=== PATIENT | male | born 1985 | race Caucasian/White ===

== ENCOUNTER 2017-10-25 20:41 | Emergency (ER) | payer SELFPAY ==
--- NOTE | 2017-10-25 21:21 | RAD ---
INDICATION: Right elbow pain COMPARISON: None TECHNIQUE: AP, lateral, and oblique views were obtained. FINDINGS: There is no acute fracture or dislocation. There is displacement of anterior posterior fat pads consistent with joint effusion There is soft tissue swelling. IMPRESSION: JOINT EFFUSION
[2017-10-25] MEDS ORDERED: traMADol TAB* 50 MG PO ONE (21:38)
[2017-10-25] MEDS ORDERED: Ibuprofen TAB* 800 MG PO ONE (21:38)
[2017-10-25] MEDS ORDERED: Morphine INJ* 10 MG/ML 1 ML CARPUJECT IV ONE (21:51)
[2017-10-25] MEDS ORDERED: Metoclopramide IV* 5 MG/ML 2 ML VIAL IV SLOW PU ONE (21:52)
[2017-10-25] MEDS ORDERED: Ibuprofen TAB* 400 MG PO ONE (22:18)
[2017-10-25 22:29] LABS: Hematocrit 43 % (42-52); Hemoglobin 14.2 g/dl (14.0-18.0); Mean Corpuscular HGB Conc 33 g/dl (31-36); Mean Corpuscular Hemoglobin 31 pg (27-31); Mean Corpuscular Volume 92 fL (80-94); Red Blood Count 4.63 10^6/ul (4.0-5.4)
[2017-10-25 22:30] LABS: ABS Basophils 0 10^3/ul (0-0.2); ABS Eosinophils 0.3 10^3/ul (0-0.6); ABS Lymphocytes 1.9 10^3/ul (1.0-4.8); ABS Monocytes 0.7 10^3/ul (0-0.8); ABS Neutrophils 5.1 10^3/ul (1.5-7.7); ABS Nucleated RBC 0 10^3/ul; Eosinophil % 3.3 % (0-6); Lymphocyte % 23.5 % (25-47); Mean Platelet Volume 10 um3 (7.4-10.4); Nucleated Red Blood Cells % 0.1; Platelet Count 179 10^3/ul (150-450); Red Cell Distribution Width 13 % (10.5-15)
[2017-10-25 22:44] LABS: EGFR Non-African American 83.9 (>60)
--- NOTE | 2017-10-25 23:19 | ED ---
Bry Sweeney Tecjoon, scribed for Ivonne Marlow MD on 10/25/17 at 2141 . Upper Extremity Pain - HPI Summary HPI Summary: This patient is a 32 year old male presenting to [facility] accompanied by father with a chief complaint of right elbow pain since yesterday morning. Patient states that he cannot fully extend his elbow. Patient states no history of trauma to the extremity. The pain is rated 1/10 in severity. Symptoms aggravated by nothing. Symptoms alleviated by nothing. Patient denies fever - History of Current Complaint Chief Complaint: EDExtremityUpper Stated Complaint: RT ELBOW INJURY Time Seen by Provider: 10/25/17 21:27 Hx Obtained From: Patient Onset/Duration: Started Days Ago - 2, Still Present Timing: Constant Severity Initially: Mild Severity Currently: Mild Pain Location: Elbow - right Aggravating Factor(s): Nothing Alleviating Factor(s): Nothing Associated Signs & Symptoms: Positive: Negative - fever - Allergies/Home Medications Allergies/Adverse Reactions: Allergies Allergy/AdvReac Type Severity Reaction Status Date / Time codeine Allergy Unknown Verified 10/25/17 20:44 Reaction Details PMH/Surg Hx/FS Hx/Imm Hx Previously Healthy: No Endocrine/Hematology History: Denies: Hx Diabetes, Hx Thyroid Disease Cardiovascular History: Denies: Hx Hypertension, Hx Pacemaker/ICD, Other Cardiovascular Problems/ Disorders Respiratory History: Denies: Hx Asthma, Hx Chronic Obstructive Pulmonary Disease (COPD), Other Respiratory Problems/Disorders GI History: Denies: Hx Ulcer, Other GI Disorders History: Denies: Other Problems/Disorders Musculoskeletal History: Denies: Other Musculoskeletal History Sensory History: Denies: Hx Contacts or Glasses, Hx Hearing Aid Opthamlomology History: Denies: Hx Contacts or Glasses Neurological History: Reports: Hx Migraine Denies: Other Neuro Impairments/Disorders Psychiatric History: Denies: Hx Panic Disorder - Surgical History Surgery Procedure, Year, and Place: ankle surgery 2013 Hx Anesthesia Reactions: No Infectious Disease History: No Infectious Disease History: Denies: Hx Hepatitis, Hx Human Immunodeficiency Virus (HIV), Traveled Outside the US in Last 30 Days - Family History Known Family History: Negative: Hypertension - Social History Occupation: Employed Full-time Lives: With Family Alcohol Use: None Hx Substance Use: No Substance Use Type: Reports: None Hx Tobacco Use: No Smoking Status (MU): Never Smoked Tobacco Review of Systems Negative: Fever Positive: Other - right elbow pain All Other Systems Reviewed And Are Negative: Yes Physical Exam - Summary Physical Exam Summary: VITAL SIGNS: Reviewed. GENERAL: Patient is a well-developed and nourished male who is lying comfortable in the stretcher. Patient is not in any acute respiratory distress. HEAD AND FACE: No signs of trauma. No ecchymosis, hematomas or skull depressions. No sinus tenderness. EYES: PERRLA, EOMI x 2, No injected conjunctiva, no nystagmus. EARS: Hearing grossly intact. Ear canals and tympanic membranes are within normal limits. MOUTH: Oropharynx within normal limits. NECK: Supple, trachea is midline, no adenopathy, no JVD, no carotid bruit, no c- spine tenderness, neck with full ROM. CHEST: Symmetric, no tenderness at palpation LUNGS: Clear to auscultation bilaterally. No wheezing or crackles. CVS: Regular rate and rhythm, S1 and S2 present, no murmurs or gallops appreciated. ABDOMEN: Soft, non-tender. No signs of distention. No rebound no guarding, and no masses palpated. Bowel sounds are normal. EXTREMITIES: FROM in all major joints, no edema, no cyanosis or clubbing. NEURO: Alert and oriented x 3. No acute neurological deficits. Speech is normal and follows commands. SKIN: Dry and warm Triage Information Reviewed: Yes Vital Signs On Initial Exam: Initial Vitals Temp Pulse Resp BP Pulse Ox 99.4 F 61 16 148/82 98 10/25/17 20:44 10/25/17 20:44 10/25/17 20:44 10/25/17 20:44 10/25/17 20:44 Vital Signs Reviewed: Yes Diagnostics - Vital Signs Vital Signs Temp Pulse Resp BP Pulse Ox 10/25/17 20:44 99.4 F 61 16 148/82 98 - Laboratory Lab Results: Lab Results 10/25/17 10/25/17 Range/Units 22:17 22:17 WBC 8.0 (3.5-10.8) 10^3/ul RBC 4.63 (4.0-5.4) 10^6/ul Hgb 14.2 (14.0-18.0) g/dl Hct 43 (42-52) % MCV 92 (80-94) fL MCH 31 (27-31) pg MCHC 33 (31-36) g/dl RDW 13 (10.5-15) % Plt Count 179 (150-450) 10^3/ul MPV 10 (7.4-10.4) um3 Neut % (Auto) 64.1 (38-83) % Lymph % (Auto) 23.5 L (25-47) % Cameron % (Auto) 8.6 (1-9) % Eos % (Auto) 3.3 (0-6) % Baso % (Auto) 0.5 (0-2) % Absolute Neuts (auto) 5.1 (1.5-7.7) 10^3/ul Absolute Lymphs (auto) 1.9 (1.0-4.8) 10^3/ul Absolute Monos (auto) 0.7 (0-0.8) 10^3/ul Absolute Eos (auto) 0.3 (0-0.6) 10^3/ul Absolute Basos (auto) 0 (0-0.2) 10^3/ul Absolute Nucleated RBC 0 10^3/ul Nucleated RBC % 0.1 ESR Pending Sodium 139 (133-145) mmol/L Potassium 4.0 (3.5-5.0) mmol/L Chloride 106 (101-111) mmol/L Carbon Dioxide 27 (22-32) mmol/L Anion Gap 6 (2-11) mmol/L BUN 27 H (6-24) mg/dL Creatinine 1.04 (0.67-1.17) mg/dL Est GFR ( Amer) 107.8 (>60) Est GFR (Non-Af Amer) 83.9 (>60) BUN/Creatinine Ratio 26.0 H (8-20) Glucose 118 H (70-100) mg/dL Calcium 9.4 (8.6-10.3) mg/dL Total Bilirubin 0.40 (0.2-1.0) mg/dL AST 15 (13-39) U/L ALT 16 (7-52) U/L Alkaline Phosphatase 39 (34-104) U/L C-Reactive Protein < 1.00 (< 5.00) mg/L Total Protein 6.7 (6.4-8.9) g/dL Albumin 4.4 (3.2-5.2) g/dL Globulin 2.3 (2-4) g/dL Albumin/Globulin Ratio 1.9 (1-3) Result Diagrams: 10/25/17 22:17 10/25/17 22:17 Lab Statement: Any lab studies that have been ordered have been reviewed, and results considered in the medical decision making process. Course/Dx - Course Course Of Treatment: This patient is a 32 year old male presenting to [facility] accompanied by father with a chief complaint of right elbow pain since yesterday morning. Patient states no history of trauma to the extremity. XR Elbow reveals, per radiologist, IMPRESSION: JOINT EFFUSION. ED physician has reviewed this radiology report. Bloodwork Obtained. Urinalysis Obtained. In the ED course the patient was given Ibuprofen, Ultram, Morphine, Reglan. We discussed patient care with Dr. Nix (Ortho) at 2148 and they recommended collecting bloodwork and reconvening. We discussed patient care with Dr. Michele (Ortho) at 2240 after collecting bloodwork and he believes that the patient does not have septic arthritis. The patient will be discharged with a diagnosis of reactive arthritis. The patient is advised to follow up with Dr. Caruso (Orthopedist) in 3 days. The patient is agreeable with this plan. - Diagnoses Provider Diagnoses: Reactive arthritis, rule out septic arthritis - Physician Notifications Discussed Care of Patient With: Luis Abreu Time Discussed With Above Provider: 21:48 - We discussed patient care with Dr. Nix (Ortho) and they recommended collecting bloodwork and reconvening. Instructed by Provider To: Other - We discussed patient care with Dr. Michele ( Ortho) at 2240 after collecting bloodwork and he believes that the patient does not have septic arthritis. Discharge - Discharge Plan Condition: Stable Disposition: HOME Prescriptions: Ibuprofen TAB* [Motrin TAB* 800 MG] 800 mg PO Q6H #30 tab Patient Education Materials: Arthritis (ED) Referrals: Montana Soto MD [Primary Care Provider] - 4 Days Clifford Caruso MD [Medical Doctor] - 3 Days Additional Instructions: Please make sure to call Dr. Caruso's office Saturday morning to make an appointment. Call office at 8 am. Return to the ED for new or worsening symptoms. The documentation as recorded by the Bry neri Tecjoon accurately reflects the service I personally performed and the decisions made by Ele caballero Abdul, MD.
[2017-10-25 23:21] VITALS: BP 124/72
== END 2017-10-25 23:21 | disposition home or self-care (01) ==
LOC: ED 20:41
DX: M02.8 Other reactive arthropathies (principal); M02.9 Reactive arthropathy, unspecified; Z88.5 Allergy status to narcotic agent
CPT/HCPCS: 36415; 80053; 85025; 85652; 86140; 86618; 96374; 96375; 99282; A9270-GY

== ENCOUNTER 2018-01-03 10:53 | Inpatient (IN) | payer MEDICAID ==
[2018-01-03 11:48] LABS: Urine Appearance Clear; Urine Blood Negative (Negative); Urine Color Yellow; Urine Ketones Negative (Negative); Urine Protein Negative (Negative); Urine Red Blood Cell Trace(0-2/hpf) (Absent); Urine Specific Gravity 1.021 (1.010-1.030); Urine Urobilinogen Negative (Negative); Urine White Blood Cell Trace(0-5/hpf) (Absent)
[2018-01-03 12:51] LABS: ABS Basophils 0 10^3/ul (0-0.2); ABS Eosinophils 0.1 10^3/ul (0-0.6); ABS Lymphocytes 1.1 10^3/ul (1.0-4.8); ABS Monocytes 0.5 10^3/ul (0-0.8); ABS Neutrophils 4.1 10^3/ul (1.5-7.7); ABS Nucleated RBC 0 10^3/ul; Eosinophil % 2.2 % (0-6); Hematocrit 44 % (42-52); Lymphocyte % 18.7 % (25-47); Mean Corpuscular HGB Conc 34 g/dl (31-36); Mean Corpuscular Hemoglobin 31 pg (27-31); Mean Corpuscular Volume 92 fL (80-94); Nucleated Red Blood Cells % 0; Platelet Count 187 10^3/ul (150-450); Red Blood Count 4.82 10^6/ul (4.0-5.4); Red Cell Distribution Width 13 % (10.5-15); White Blood Count 5.5 10^3/ul (3.5-10.8)
[2018-01-03 12:56] LABS: EGFR Non-African American 93.1 (>60)
[2018-01-03] MEDS ORDERED: Acetaminophen TAB* 325 MG PO PRN (15:06)
[2018-01-03] MEDS ORDERED: Al Hydrox/Mg Hydrox/Simet LIQ* 30 ML UDC PO PRN (15:06)
[2018-01-03] MEDS ORDERED: LORazepam TAB(*) 1 MG PO PRN (15:08)
[2018-01-03] MEDS ORDERED: Haloperidol TAB* 5 MG PO PRN (15:08)
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
--- NOTE | 2018-01-04 21:05 | HP ---
HISTORY AND PHYSICAL: DATE OF ADMISSION: IDENTIFYING DATA: Lang is a 32-year-old white male, with no prior history of psychiatric hospitaliza tion or treatment, was brought into the emergency room by police after his family and friends called 911 due to their concern about his safety as well as safety of others that he is paranoid about. Acc ording to the family and Lang corroborates with that as well that for the last several years, he has been having thoughts that some of his intellectual properties were being stolen by others and they we re making fortune while he was not getting anything out of it. He believes something called foot scri bbling, which can earn him millions even billions of dollars. This intellectual idea was stolen by a couple of agencies and they will be making billions of dollars and he is very upset about it and had thoughts of hurting them and eventually yesterday, while he was driving and talking to one of his fr iends, he even told his friend that he was going to end his life because of this enormous loss that merry cosme has suffered by losing his intellectual property to other people. His brother and mother also expr essed their concerns about his unusual thought content especially the paranoia that he has that they wanted him to get some help. During today's evaluation, he verbalized those delusions and paranoia, but denies any hallucinations. He also denied any thoughts of hurting others, although acknowledges that there was a time that he thought about ending his life because of the enormous loss he suffered. PAST PSYCHIATRIC HISTORY: Unremarkable as this is his first exposure to mental health. SUBSTANCE ABUSE HISTORY: Although he experimented with cocaine and has a history of drinking in the past, he continues to smoke marijuana on daily basis. He has been smoking marijuana for years now. His last drink was months ago and he has not used any cocaine for about a couple of years now. He de nies use of any other psychoactive drugs. PAST MEDICAL HISTORY: Unremarkable. He is a healthy-appearing young male. FAMILY PSYCHIATRIC HISTORY: Lang reports that his father may have mental health problems and he thin ks his father suffers from conversion disorder. In his opinion, his paternal grandmother also has so me mental health problems. There is no history of completed suicide or suicide attempts. PERSONAL AND SOCIAL HISTORY: Lang lives in [place]. 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 He reports that he has 4 years of college education in business administration; however, did not pursue any career in business administration. He rather wishes to become a physical health bilingual trainer. He do es yoga and other physical activities and wants to be a bilingual trainer. He is currently not involved in any romantic relationship. He reports that his libido has been very poor and cannot maintain a relation ship because of that reason. Denies any legal problems. PHYSICAL EXAMINATION GENERAL APPEARANCE: Healthy-appearing white male in no apparent physical distress. VITAL SIGNS: Shows a blood pressure of 136/91, respirations 14, pulse 60, temperature 98.1, O2 sat 9 7% on room air. HEENT: Head: Atraumatic, normocephalic. Face: Normal. Eyes: EOMI, PERRLA. Ear canals: Clean wi th intact tympanic membranes bilaterally. NECK: Supple. No enlarged lymph nodes or thyroid gland. Midline trachea. CHEST: Breath sounds normal bilaterally. CARDIOVASCULAR: Heart rate regular with regular rhythm. No murmurs or gallops. S1 and S2 only. ABDOMEN: Flat, but soft without any organomegaly or rebound tenderness. Bowel sounds positive in al l quadrants. MUSCULOSKELETAL: Normal strength. ROM intact. NEUROLOGIC: Cranial nerves II through XII grossly intact. He is alert and oriented to time, place, and person. LABORATORY DATA: Show a WBC count of 5.5, hemoglobin 15, hematocrit 44, platelets 187. CMP shows a sodium level of 137, potassium 3.9, chloride 103, carbon dioxide 24, BUN 15, creatinine 0.95. Rest unremarkable. Tox screen unremarkable. MENTAL STATUS EXAMINATION: Lang is average height, thin-framed, otherwise physically healthy Caucasi an male with short cut hair, clean shaven with fair personal hygiene. He makes good eye contact. Sp eech is normal in all spheres. Describes his mood as good. Observed affect euthymic. Thought proces s is logical and goal-directed; however, thought content has delusion of grandeur and some paranoid d elusions as well. There is no evidence or report of perceptual disturbances. His intelligence appea rs to be average as evidenced by his vocabulary, fund of knowledge, and educational background. Sebastian ry functions are intact in all spheres. Insight and judgment impaired. SUMMARY: This 32-year-old male with no prior history of treatment for psychiatric illness has been experiencing delusion of grandeur and some paranoid delusion resulting in him thinking about either hurting those people, who stole his intellectual property to make millions of dollars or he w as going to end his life because of the tremendous loss he suffered. At this time, he poses a seriou s risk of harm to self and others and needs inpatient hospitalization. DIAGNOSTIC IMPRESSION: MENTAL HEALTH DIAGNOSES: Unspecified psychosis, rule out substance-induced psychosis; cannabis use d isorder; rule out bipolar disorder with psychotic symptoms. PHYSICAL HEALTH DIAGNOSIS: None. TREATMENT RECOMMENDATIONS: Lang will remain hospitalized on behavioral science unit for his and othe rs' safety as well as stabilization of acute psychosis. Supportive milieu, individual, and group ther apy will be initiated. His code status will remain full. For now, I will start him on low doses of risperidone. Risks, benefits, and alternatives to risperidone were explained to him. He verbalized h is understanding and wants to give it a try. His regular use of marijuana was discussed in detail an santiago the possibility of his psychosis related to his marijuana use was also explained to him, although merry cosme has hard time understanding it. He was open to any kind of treatment recommendation. In my opinsarath cardenas, involving his family in his future treatment plan for substance abuse will be very helpful and don cardenas referring him for substance use treatment will not be a bad idea. [id number]/[facility] #: [id number]
--- NOTE | 2018-01-06 13:45 | PN ---
[facility]: Group Therapy Note - Service Type Service Type: 74101 Group Psychotherapy - Cognitive Behavioral Group Therapy ( CBT):Patient was attentive and participatory in CBT programming this morning, and remained in good behavioral control. Patient expressed positive insights regarding relevant treatment interventions and goals.
--- NOTE | 2018-01-06 14:35 | PN ---
Subjective - Subjective Service Type: 74095 Hosp care 25 min moderate complexity Subjective: Patient admitted over the weekend and assigned to policy writer typist this morning. Patient reports "uncertainty about everything." He is vague and guarded. He goes on to describe an idea that he had in 2012 about "turning foot work into art work. " He states that he told various people about this idea and has recently seen it explode on social media. He speaks with overuse of phrases, such as "that which defines me" and "conducive to." Patient identifies he is "obsessive in nature" and that he has stopped alcohol and other impulses. He states he has a history "doing everything high" and has decreased marijuana use in the last year. He reports his last use was approx one week ago. He states he saw Gregorio Hager for counseling most recently in July and has otherwise seen him "a handful of times in the last few years." He states that GP has encouraged him to go to [facility] clinic. Objective - Appearance Appearance: Healthy Appearing Dysmorphic Features: No Hygiene: Normal Grooming: Well Kept - Behavior Psychomotor Activities: Normal Exhibits Abnormal Movement: No - Attitude and Relatedness Attitude and Relatedness: Psychotically Related Eye Contact: Good - Speech Quality: Unpressured Latencies: Normal Quantity: Copious - Mood Patient's Decription of Mood: "Good" - Affect Observed Affect: Expansive Affect Consistent with: Euphoria - Thought Process Patient's Thought Process: Loose Associations, Over Inclusive Thought Content: Yes Paranoid Ideation, No Passive Wish, No Suicidal Planning, No Homicidal Ideation - Sensorium Experiencing Hallucinations: No, Sensorium is Clear Type of Hallucinations: Visual: No, Auditory: No, Command: No - Level of Consciousness Level of Consciousness: Alert Orientation: Yes Intact, Yes Orientated to Time, Yes Orientated to Place, Yes Orientated to Person - Impulse Control Impulse Control: Tenuous - Insight and Judgement Insight and Judgement: Poor - Group Participation Particating in Group Activities: Yes - Medication Management Medication Management Adherence: Yes Assessment - Assessment Merits Inpatient Hospitalization: For Immediate Safety, For Stabilization Inpatient DSM-V Dx: F23 Clinical Impression: 32yo white male who presented to ED with thoughts of harm to self and others in relation to grandiose and paranoid delusions. He reports decreasing marijuana intake compared to heavy daily use. He continues to exhibit psychotic thinking and merits hospitalization for immediate safety and stabilization. Plan - Plan Treatment Plan: Name: MYLES CREWS Birthdate: 1985 [id number] continue acute intensive psychiatric treatment. increase risperidone to 1mg. obtain MMPI for diagnostic clarification. decrease observation to q30min and allow staff pass. discharge planning to include family members and referrals to outpatient services. Continued Medication Management: Start Medication Medications: Current Medications Acetaminophen (Tylenol Tab*) 650 mg PO Q4H PRN PRN Reason: for pain; or Temp >101 F Al Hydrox/Mg Hydrox/Simethicone (Maalox Plus*) 30 ml PO Q4H PRN PRN Reason: INDIGESTION Haloperidol (Haldol Tab*) 5 mg PO Q6H PRN PRN Reason: AGITATION Risperidone (Risperdal) 0.5 mg PO BEDTIME RAMSES Last Admin: 01/05/18 20:37 Dose: 0.5 mg - Discharge Plan Discharge Plan: Outpatient Follow Up Outpatient Program: [facility]
[2018-01-06] MEDS: risperiDONE TAB* 1 MG PO SCH (20:30)
--- NOTE | 2018-01-07 11:34 | PN ---
[facility]: Group Therapy Note - Service Type Service Type: 26695 Group Psychotherapy - Cognitive Behavioral Group Therapy ( CBT):Patient was attentive and participatory in CBT programming this morning, and remained in good behavioral control. Patient expressed positive insights regarding relevant treatment interventions and goals.
--- NOTE | 2018-01-07 14:50 | PN ---
Subjective - Subjective Service Type: 19571 Hosp care 25 min moderate complexity Subjective: Patient reports "slight angst" and some remorse for interactions that have been received as "too aggressive." He states that he often feels "pressure behind my left high that is related to emotional intensity." His thought content is tangential but also circumstantial in regards to his chief complaint of "stolen intellectual property." Objective - Appearance Appearance: Well Developed/Nourished, Healthy Appearing Dysmorphic Features: No Hygiene: Normal Grooming: Well Kept - Behavior Psychomotor Activities: Normal Exhibits Abnormal Movement: No - Attitude and Relatedness Attitude and Relatedness: Psychotically Related Eye Contact: Good - Speech Quality: Unpressured Latencies: Normal Quantity: Appropriate - Mood Patient's Decription of Mood: "slight angst" - Affect Observed Affect: Good Affect Consistent with: Euthymia - Thought Process Patient's Thought Process: Circumstantial Thought Content: Yes Paranoid Ideation, No Passive Wish, No Suicidal Planning, No Homicidal Ideation - Sensorium Experiencing Hallucinations: No, Sensorium is Clear Type of Hallucinations: Visual: No, Auditory: No, Command: No - Level of Consciousness Level of Consciousness: Alert - Impulse Control Impulse Control: Tenuous - Insight and Judgement Insight and Judgement: Poor - Group Participation Particating in Group Activities: Yes - Medication Management Medication Management Adherence: Yes Assessment - Assessment Merits Inpatient Hospitalization: For Immediate Safety, For Stabilization, Consolidate Improvements, For Discharge Planning Inpatient DSM-V Dx: F23 Clinical Impression: 32yo white male who presented to ED with thoughts of harm to self and others in relation to grandiose and paranoid delusions. He reports decreasing marijuana intake compared to heavy daily use. He continues to exhibit psychotic thinking and merits hospitalization for immediate safety and stabilization. Plan - Plan Treatment Plan: Name: MYLES CREWS Birthdate: 1985 [id number] continue acute intensive psychiatric treatment. continue risperidone at current dose. awaiting MMPI for diagnostic clarification. decrease observation to q30min and allow staff pass. discharge planning to include family members and referrals to outpatient services. Continued Medication Management: Start Medication Medications: Current Medications Acetaminophen (Tylenol Tab*) 650 mg PO Q4H PRN PRN Reason: for pain; or Temp >101 F Last Admin: 01/06/18 18:02 Dose: 650 mg Al Hydrox/Mg Hydrox/Simethicone (Maalox Plus*) 30 ml PO Q4H PRN PRN Reason: INDIGESTION Haloperidol (Haldol Tab*) 5 mg PO Q6H PRN PRN Reason: AGITATION Risperidone (Risperdal*) 1 mg PO BEDTIME [facility] Last Admin: 01/06/18 20:30 Dose: 1 mg - Discharge Plan Discharge Plan: Outpatient Follow Up Outpatient Program: [facility]
--- NOTE | 2018-01-07 15:11 | RAD ---
HISTORY: Psychotic kinking, pressure behind left eye COMPARISONS: None TECHNIQUE: Multiple contiguous axial CT scans were obtained of the head without intravenous contrast. FINDINGS: HEMORRHAGE/INFARCT: There is no hemorrhage or acute infarct. MASSES/SHIFT: There is no mass or shift. EXTRA-AXIAL SPACES: There are no extra-axial fluid collections. SULCI AND VENTRICLES: The sulci and ventricles are normal in size and position for the patient's stated age. CEREBRUM: There are no focal parenchymal abnormalities. BRAINSTEM: There are no focal parenchymal abnormalities. CEREBELLUM: There are no focal parenchymal abnormalities. VESSELS: The vessels are grossly normal. PARANASAL SINUSES: The paranasal sinuses are clear. ORBITS: The orbits are unremarkable. BONES AND SOFT TISSUE: No bone or soft tissue abnormalities are noted. OTHER: None IMPRESSION: NO ACUTE INTRACRANIAL PATHOLOGY.
[2018-01-07] MEDS: risperiDONE TAB* 1 MG PO SCH (20:44)
--- NOTE | 2018-01-08 16:07 | PN ---
Subjective - Subjective Date of Service: 01/08/18 Service Type: 26722 Hosp care 35 min high complexity Subjective: Patient and parents met with report writer and Randi Londono LMSW. Discussed presentation, diagnoses and treatment plan. Patient was cooperative and presented well. However, he was guarded and intellectualized. He was politely dismissive of therapeutic suggestions. His parents, especially his father, expressed concern about Myles's change in presentation since freshman year of college. Objective - Appearance Appearance: Healthy Appearing Dysmorphic Features: No Hygiene: Normal Grooming: Well Kept - Behavior Psychomotor Activities: Normal Exhibits Abnormal Movement: No - Attitude and Relatedness Attitude and Relatedness: Psychotically Related Eye Contact: Good - Speech Quality: Unpressured Latencies: Normal Quantity: Copious - Mood Patient's Decription of Mood: "Fine" - Affect Observed Affect: Tense Affect Consistent with: Euthymia - Thought Process Patient's Thought Process: Loose Associations, Circumstantial Thought Content: Yes Paranoid Ideation, No Passive Wish, No Suicidal Planning, No Homicidal Ideation - Sensorium Experiencing Hallucinations: No, Sensorium is Clear Type of Hallucinations: Visual: No, Auditory: No, Command: No - Level of Consciousness Level of Consciousness: Alert Orientation: Yes Intact, Yes Orientated to Time, Yes Orientated to Place, Yes Orientated to Person - Impulse Control Impulse Control: Impaired - Insight and Judgement Insight and Judgement: Impaired - Group Participation Particating in Group Activities: Yes - Medication Management Medication Management Adherence: Yes Assessment - Assessment Merits Inpatient Hospitalization: For Immediate Safety, For Stabilization, Consolidate Improvements Inpatient DSM-V Dx: F23 Clinical Impression: 32yo white male who presented to ED with thoughts of harm to self and others in relation to grandiose and paranoid delusions. He reports decreasing marijuana intake compared to heavy daily use. He continues to exhibit psychotic thinking and merits hospitalization for immediate safety and stabilization. Plan - Plan Treatment Plan: Name: MYLES CREWS Birthdate: 1985 [id number] continue acute intensive psychiatric treatment. continue risperidone at current dose. MMPI endorses paranoia. discharge planning to include family members and referrals to outpatient services. Continued Medication Management: Start Medication Medications: Current Medications Acetaminophen (Tylenol Tab*) 650 mg PO Q4H PRN PRN Reason: for pain; or Temp >101 F Last Admin: 01/06/18 18:02 Dose: 650 mg Al Hydrox/Mg Hydrox/Simethicone (Maalox Plus*) 30 ml PO Q4H PRN PRN Reason: INDIGESTION Haloperidol (Haldol Tab*) 5 mg PO Q6H PRN PRN Reason: AGITATION Risperidone (Risperdal*) 1 mg PO BEDTIME [facility] Last Admin: 01/07/18 20:44 Dose: 1 mg - Discharge Plan Discharge Plan: Outpatient Follow Up Outpatient Program: [facility]
[2018-01-08] MEDS: risperiDONE TAB* 1 MG PO SCH (20:37)
--- NOTE | 2018-01-09 16:53 | PN ---
Subjective - Subjective Date of Service: 01/09/18 Service Type: 00891 Hosp care 15 min low complexity Subjective: Patient presents as angry with intense stare. He continues to perseverate on his "intellectual property" and that many other people are conspiring against him. He utilized comfort room the evening prior and perused social media. He continues to exhibit poor insight into delusional and obsessive thinking. Objective - Appearance Appearance: Healthy Appearing Dysmorphic Features: No Hygiene: Normal Grooming: Well Kept - Behavior Psychomotor Activities: Normal Exhibits Abnormal Movement: No - Attitude and Relatedness Attitude and Relatedness: Psychotically Related Eye Contact: Good - intense - Speech Quality: Unpressured Latencies: Normal Quantity: Terse - Mood Patient's Decription of Mood: "Irritable" - Affect Observed Affect: Tense Affect Consistent with: Euthymia - Thought Process Patient's Thought Process: Loose Associations Thought Content: Yes Paranoid Ideation, No Passive Wish, No Suicidal Planning, No Homicidal Ideation - Sensorium Experiencing Hallucinations: No, Sensorium is Clear Type of Hallucinations: Visual: No, Auditory: No, Command: No - Level of Consciousness Level of Consciousness: Alert Orientation: Yes Intact, Yes Orientated to Time, Yes Orientated to Place, Yes Orientated to Person - Impulse Control Impulse Control: Poor - Insight and Judgement Insight and Judgement: Impaired - Group Participation Particating in Group Activities: Yes - Medication Management Medication Management Adherence: Yes Assessment - Assessment Merits Inpatient Hospitalization: For Immediate Safety, For Stabilization, Consolidate Improvements Inpatient DSM-V Dx: F23 Clinical Impression: 32yo white male who presented to ED with thoughts of harm to self and others in relation to grandiose and paranoid delusions. He reports decreasing marijuana intake compared to heavy daily use. He continues to exhibit psychotic thinking and merits hospitalization for immediate safety and stabilization. Plan - Plan Treatment Plan: Name: MYLES CREWS Birthdate: 1985 [id number] continue acute intensive psychiatric treatment. continue risperidone at current dose. consider increase in risperidone and addition of SSRI; patient does not give consent at this time. continue observation q30min and allow staff pass. patient is not allowed computer privileges. discharge planning to include family members and referrals to outpatient services. Continued Medication Management: Consider Medication Medications: Current Medications Acetaminophen (Tylenol Tab*) 650 mg PO Q4H PRN PRN Reason: for pain; or Temp >101 F Last Admin: 01/06/18 18:02 Dose: 650 mg Al Hydrox/Mg Hydrox/Simethicone (Maalox Plus*) 30 ml PO Q4H PRN PRN Reason: INDIGESTION Haloperidol (Haldol Tab*) 5 mg PO Q6H PRN PRN Reason: AGITATION Risperidone (Risperdal*) 1 mg PO BEDTIME [facility] Last Admin: 01/08/18 20:37 Dose: 1 mg - Discharge Plan Discharge Plan: Outpatient Follow Up Outpatient Program: [facility]
--- NOTE | 2018-01-09 16:57 | PN ---
Subjective - Subjective Service Type: [id number] Group Psychotherapy - Medication Education Group: Patient was irritable and did not engage in conversation. Assessment - Assessment Inpatient DSM-V Dx: F23 Clinical Impression: 32yo white male who presented to ED with thoughts of harm to self and others in relation to grandiose and paranoid delusions. He reports decreasing marijuana intake compared to heavy daily use. He continues to exhibit psychotic thinking and merits hospitalization for immediate safety and stabilization. Plan - Plan Treatment Plan: Name: MYLES CREWS Birthdate: 1985 [id number] continue acute intensive psychiatric treatment. continue risperidone at current dose. awaiting MMPI for diagnostic clarification. decrease observation to q30min and allow staff pass. discharge planning to include family members and referrals to outpatient services. Medications: Current Medications Acetaminophen (Tylenol Tab*) 650 mg PO Q4H PRN PRN Reason: for pain; or Temp >101 F Last Admin: 01/06/18 18:02 Dose: 650 mg Al Hydrox/Mg Hydrox/Simethicone (Maalox Plus*) 30 ml PO Q4H PRN PRN Reason: INDIGESTION Haloperidol (Haldol Tab*) 5 mg PO Q6H PRN PRN Reason: AGITATION Risperidone (Risperdal*) 1 mg PO BEDTIME [facility] Last Admin: 01/08/18 20:37 Dose: 1 mg
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
[2018-01-09] MEDS: risperiDONE TAB* 1 MG PO SCH (21:03)
[2018-01-10] MEDS: FLUoxetine CAP* 20 MG PO SCH (12:26)
--- NOTE | 2018-01-10 14:39 | PN ---
Subjective - Subjective Date of Service: 01/10/18 Service Type: 97191 Hosp care 25 min moderate complexity Subjective: Met with patient along with Randi Londono LMSW. Discussed concerns about his and others' safety due to delusions and anger. Patient receptive to suggestions but attempts to contradict providers' assessments. Discussed use of SSRI for obsessive compulsive traits and risperidone for delusional and intrusive thoughts. Objective - Appearance Appearance: Well Developed/Nourished, Healthy Appearing Dysmorphic Features: No Hygiene: Normal Grooming: Well Kept - Behavior Psychomotor Activities: Normal Exhibits Abnormal Movement: No - Attitude and Relatedness Attitude and Relatedness: Superficially Cooperative Eye Contact: Good - Speech Quality: Unpressured Latencies: Normal Quantity: Appropriate - Mood Patient's Decription of Mood: "Fine" - Affect Observed Affect: Tense Affect Consistent with: Dysphoria - Thought Process Patient's Thought Process: Loose Associations Thought Content: Yes Paranoid Ideation, No Passive Wish, No Suicidal Planning, No Homicidal Ideation - Sensorium Experiencing Hallucinations: No, Sensorium is Clear Type of Hallucinations: Visual: No, Auditory: No, Command: No - Level of Consciousness Level of Consciousness: Alert Orientation: Yes Intact, Yes Orientated to Time, Yes Orientated to Place, Yes Orientated to Person - Impulse Control Impulse Control: Tenuous - Insight and Judgement Insight and Judgement: Impaired - Group Participation Particating in Group Activities: Yes - Medication Management Medication Management Adherence: Yes Assessment - Assessment Merits Inpatient Hospitalization: For Immediate Safety, For Stabilization, Consolidate Improvements Inpatient DSM-V Dx: F23 Clinical Impression: 32yo white male who presented to ED with thoughts of harm to self and others in relation to grandiose and paranoid delusions. He reports decreasing marijuana intake compared to heavy daily use. He continues to exhibit psychotic thinking and merits hospitalization for immediate safety and stabilization. Plan - Plan Treatment Plan: Name: MYLES CREWS Birthdate: 1985 [id number] continue acute intensive psychiatric treatment. increase risperidone 2mg qhs, add fluoxetine 20mg daily. continue observation q30min and allow staff pass. patient is not allowed computer privileges. discharge planning to include family members and referrals to outpatient services. Continued Medication Management: Different Medication Medications: Current Medications Acetaminophen (Tylenol Tab*) 650 mg PO Q4H PRN PRN Reason: for pain; or Temp >101 F Last Admin: 01/06/18 18:02 Dose: 650 mg Al Hydrox/Mg Hydrox/Simethicone (Maalox Plus*) 30 ml PO Q4H PRN PRN Reason: INDIGESTION Fluoxetine HCl (Prozac Cap*) 20 mg PO DAILY [facility] Last Admin: 01/10/18 12:26 Dose: 20 mg Haloperidol (Haldol Tab*) 5 mg PO Q6H PRN PRN Reason: AGITATION Risperidone (Risperdal*) 2 mg PO BEDTIME [facility] - Discharge Plan Discharge Plan: Outpatient Follow Up Outpatient Program: [facility]
[2018-01-10] MEDS: risperiDONE TAB* 2 MG PO SCH ×2 (20:14→22:15)
[2018-01-10] MEDS ORDERED: traZODone TAB* 50 MG TAB PO ONE (22:00)
[2018-01-11] MEDS: FLUoxetine CAP* 20 MG PO SCH (08:46)
[2018-01-11] MEDS: risperiDONE TAB* 2 MG PO SCH (20:54)
[2018-01-12] MEDS: FLUoxetine CAP* 20 MG PO SCH (08:57)
[2018-01-12] MEDS: risperiDONE TAB* 2 MG PO SCH (20:42)
[2018-01-13] MEDS: FLUoxetine CAP* 20 MG PO SCH (09:01)
[2018-01-13] MEDS ORDERED: risperiDONE TAB* 3 MG PO SCH (21:00)
[2018-01-13] MEDS ORDERED: risperiDONE TAB* 2 MG PO SCH (21:00)
[2018-01-14] MEDS: FLUoxetine CAP* 20 MG PO SCH (08:46)
[2018-01-14] MEDS ORDERED: FLUoxetine CAP* 10 MG PO SCH (09:00)
--- NOTE | 2018-01-14 10:28 | PN ---
Subjective - Subjective Date of Service: 01/13/18 Service Type: [id number] Hosp care 15 min low complexity Subjective: Patient continues to endorse rumination about delusion of "intellectual property." He tells scientific technical writer that his family is more important than this. He agrees to increase fluoxetine to target obsessive thinking. Patient's father present for visiting hours and tells scientific technical writer that Myles was very agitated this past weekend and "kicked him out" before visiting hours ended. Objective - Appearance Appearance: Healthy Appearing Dysmorphic Features: No Hygiene: Normal Grooming: Well Kept - Behavior Psychomotor Activities: Normal Exhibits Abnormal Movement: No - Attitude and Relatedness Attitude and Relatedness: Superficially Cooperative Eye Contact: Good - Speech Quality: Unpressured Latencies: Normal Quantity: Terse - Mood Patient's Decription of Mood: "Fine" - Affect Observed Affect: Tense Affect Consistent with: Euthymia - Thought Process Patient's Thought Process: Loose Associations Thought Content: Yes Paranoid Ideation, No Passive Wish, No Suicidal Planning, No Homicidal Ideation - Sensorium Experiencing Hallucinations: No, Sensorium is Clear Type of Hallucinations: Visual: No, Auditory: No, Command: No - Level of Consciousness Level of Consciousness: Alert Orientation: Yes Intact, Yes Orientated to Time, Yes Orientated to Place, Yes Orientated to Person - Impulse Control Impulse Control: Tenuous - Insight and Judgement Insight and Judgement: Poor - Group Participation Particating in Group Activities: Yes - Medication Management Medication Management Adherence: Yes Assessment - Assessment Merits Inpatient Hospitalization: For Immediate Safety, For Stabilization, Consolidate Improvements, Pending Safe DC Plan Inpatient DSM-V Dx: F23 Clinical Impression: 32yo white male who presented to ED with thoughts of harm to self and others in relation to grandiose and paranoid delusions. He reports decreasing marijuana intake compared to heavy daily use. He continues to exhibit psychotic thinking and merits hospitalization for immediate safety and stabilization. Plan - Plan Treatment Plan: Name: MYLES CREWS Birthdate: 1985 [id number] continue acute intensive psychiatric treatment. increase fluoxetine to 40mg daily. continue observation q30min and allow staff pass. patient is not allowed computer privileges. discharge planning to include family members and referrals to outpatient services. Continued Medication Management: Different Medication Medications: Current Medications Acetaminophen (Tylenol Tab*) 650 mg PO Q4H PRN PRN Reason: for pain; or Temp >101 F Last Admin: 01/06/18 18:02 Dose: 650 mg Al Hydrox/Mg Hydrox/Simethicone (Maalox Plus*) 30 ml PO Q4H PRN PRN Reason: INDIGESTION Fluoxetine HCl (Prozac Cap*) 40 mg PO DAILY [facility] Last Admin: 01/14/18 08:46 Dose: 40 mg Haloperidol (Haldol Tab*) 5 mg PO Q6H PRN PRN Reason: AGITATION Risperidone (Risperdal*) 2 mg PO BEDTIME [facility] Last Admin: 01/13/18 20:31 Dose: 2 mg - Discharge Plan Discharge Plan: Outpatient [facility]
--- NOTE | 2018-01-14 13:04 | PN ---
MHU: Group Therapy Note - Service Type Service Type: [id number] Group Psychotherapy - Cognitive Behavioral Group Therapy ( CBT):Patient was attentive and participatory in CBT programming this morning, and remained in good behavioral control. Patient expressed positive insights regarding relevant treatment interventions and goals.
[2018-01-14] MEDS: risperiDONE TAB* 3 MG PO SCH (20:46)
[2018-01-15] MEDS: FLUoxetine CAP* 20 MG PO SCH (08:57)
--- NOTE | 2018-01-15 18:02 | PN ---
Subjective - Subjective Date of Service: 01/14/18 Service Type: [id number] Hosp care 15 min low complexity Subjective: Patient endorses continued intrusive thoughts. He states he has been able to control most compulsions since he was a child. He is receptive to information about cognitive distortions and thought/mood journaling. He agrees to increase risperidone to target intrusive and obsessive thoughts. Objective - Appearance Appearance: Well Developed/Nourished Dysmorphic Features: No Hygiene: Normal Grooming: Well Kept - Behavior Psychomotor Activities: Normal Exhibits Abnormal Movement: No - Attitude and Relatedness Attitude and Relatedness: Cooperative Eye Contact: Good - Speech Quality: Unpressured Latencies: Normal Quantity: Appropriate - Mood Patient's Decription of Mood: "Okay" - Affect Observed Affect: Good Affect Consistent with: Euthymia - Thought Process Patient's Thought Process: Circumstantial Thought Content: Yes Paranoid Ideation, No Passive Wish, No Suicidal Planning, No Homicidal Ideation - Sensorium Experiencing Hallucinations: No, Sensorium is Clear Type of Hallucinations: Visual: No, Auditory: No, Command: No - Level of Consciousness Level of Consciousness: Alert Orientation: Yes Intact, Yes Orientated to Time, Yes Orientated to Place, Yes Orientated to Person - Impulse Control Impulse Control: Tenuous - Insight and Judgement Insight and Judgement: Fair - Group Participation Particating in Group Activities: Yes - Medication Management Medication Management Adherence: Yes Assessment - Assessment Merits Inpatient Hospitalization: For Immediate Safety, For Stabilization, Consolidate Improvements Inpatient DSM-V Dx: F23 Clinical Impression: 32yo white male who presented to ED with thoughts of harm to self and others in relation to grandiose and paranoid delusions. He reports decreasing marijuana intake compared to heavy daily use. He continues to exhibit psychotic thinking and merits hospitalization for immediate safety and stabilization. Plan - Plan Treatment Plan: Name: MYLES CREWS Birthdate: 1985 [id number] continue acute intensive psychiatric treatment. increase risperidone to 3mg qhs. continue observation q30min and allow staff pass. patient is not allowed computer privileges. discharge planning to include family members and referrals to outpatient services. Continued Medication Management: Different Medication Medications: Current Medications Acetaminophen (Tylenol Tab*) 650 mg PO Q4H PRN PRN Reason: for pain; or Temp >101 F Last Admin: 04/30/18 18:02 Dose: 650 mg Al Hydrox/Mg Hydrox/Simethicone (Maalox Plus*) 30 ml PO Q4H PRN PRN Reason: INDIGESTION Fluoxetine HCl (Prozac Cap*) 40 mg PO DAILY [facility] Last Admin: 01/15/18 08:57 Dose: 40 mg Haloperidol (Haldol Tab*) 5 mg PO Q6H PRN PRN Reason: AGITATION Risperidone (Risperdal*) 3 mg PO BEDTIME [facility] Last Admin: 01/14/18 20:46 Dose: 3 mg - Discharge Plan Discharge Plan: Outpatient Follow Up Outpatient Program: [facility]
[2018-01-15] MEDS: risperiDONE TAB* 3 MG PO SCH (20:42)
[2018-01-16 08:22] VITALS: BP 125/82
[2018-01-16] MEDS: FLUoxetine CAP* 20 MG PO SCH (09:08)
--- NOTE | 2018-01-16 11:30 | PN ---
MHU: Group Therapy Note - Service Type Service Type: [id number] Group Psychotherapy - Cognitive Behavioral Group Therapy ( CBT):Patient was attentive and participatory in CBT programming this morning, and remained in good behavioral control. Patient expressed positive insights regarding relevant treatment interventions and goals.
--- NOTE | 2018-01-18 00:28 | DS ---
CC: [facility]; Dr. Montana Soto; [facility]. * DISCHARGE SUMMARY: DATE OF ADMISSION: 01/03/18 DATE OF DISCHARGE: 01/16/18 ATTENDING PROVIDER: Praneeth Salvador MD * (DICTATED BY DEVANG VANCE NP) DISCHARGE DIAGNOSES: 1. Obsessive compulsive disorder. 2. Paraphilia. 3. Cannabis use disorder. CONDITION AT THE TIME OF DISCHARGE: Improved. The patient has been calm in behavioral control. He reports improvement in his intrusive thoughts as well as compulsion. He continues to struggle with whether or not his "intellectual property" was stolen from him, has mild paranoia in regards to this topic along with social media. He has agreed to follow up with [facility] for both intensive therapy to target cognitive restructuring. He reports intent to continue on current medications and work with outpatient psychiatrist for future medication changes. We discussed option of Risperdal Consta as an NGUYEN and the patient declines due to significant fear of needles. The patient was encouraged to discuss this option in the future if he is having difficulty adhering to daily risperidone tablets. The patient continued to deny suicidal ideations, he denies homicidal or violent ideations, but increasingly receptive to therapeutic suggestions by staff and treatment team. His father was contacted regarding discharge planning and he is agreeable with plan. He will stay with both either of his parent as they live close to each other. MENTAL STATUS EXAM: The patient is a 32-year-old white male with an athletic built. He appears stated age. He is well groomed. He is wearing his own clothing. He appears stated age. He is well related. The patient is cooperative with interview and sits with a relaxed posture. He is alert and oriented x3. His eye contact is good. His speech is soft and articulate. Mood is euthymic with congruent affect. Thought process is logical, goal directed. Patient denies any hallucinations, delusions. He denies SI, HI of . His insight and judgment are fair but improved. His memory is 3/3 and fund of knowledge is adequate. DISCHARGE INSTRUCTIONS GIVEN TO THE PATIENT: A. Medications: The patient will remain on fluoxetine 40 mg and risperidone 3 mg at bedtime one month supply was electronically prescribed to [facility] on [email or web address] per patient's request. B. Diet: Regular. C. Activity: Ambulation as tolerated. D. Tobacco cessation: Not applicable. There are no studies pending at the time of discharge. E. Followup care: The patient will follow up at [facility] and has been assigned to Mariana and she will meet with her on Saturday, at 9 a.m. He was has referred for an intake to alcohol and drug counsellors on , 01/23/18 at 2:30 p.m. with Montana Biggs and he can return to his primary care provider, Dr. Montana Soto as needed. F. Substance abuse followup: The declined offer for medication for substance use and he has been on a FDA approved medication for cannabis use disorder. He was referred to alcohol and drug counseling for outpatient substance use treatment. HOSPITAL COURSE: Part A. Reason for admission: The patient was brought to the emergency department via police due to family and friends concern that patient had voiced suicidal ideations as well as violent ideations in the context of paranoid delusions. The patient had been engaging in significant cannabis use over the past years after stopping alcohol use. The patient had limited insight into the likelihood of misperception from social media. He was admitted on involuntary status to the adult [facility] for acute psychosis. Part B. Psychiatric treatment rendered: The patient was mildly agreeable to trial of medication. Patient was hesitant to accept suggestions of psychopharmacology for psychosis. He was more receptive to suggestions for obsessive compulsive symptoms. He eventually was titrated to fluoxetine 40 mg daily and risperidone 3 mg at bedtime. We discussed how cannabis use has been problematic for him and he is motivated to restrain. Laboratory data: Patient continually refused blood draw for hemoglobin A1c and lipid panel due to antipsychotic therapy. In the emergency department, his CBC was generally unremarkable. Chemistry, low sodium of 137, TSH normal at 1.51. Urinalysis was within normal limits with toxicology was positive for cannabinoids, which is consistent with the patient's report. During his psychiatric admission, the patient was calm and in behavioral control. He was compliant with unit routines and programming. Towards the beginning of hospitalization this was primarily superficial, he had a very tense presentation with intense stare. He was mildly irritable and resented when discussing his delusions. A family meeting occurred with the patient's mother and father to discuss presentation, history and suggestions for continued treatment. At this time, the patient was notably defensive and psychotically related. He engaged in psychological testing and I case tested him with psychologist, Dr. Vladimir Reilly. Over time with titration of medications, the patient was increasingly well related. He presented as less anxious and less tense. He was agreeable to suggestion for followup. The patient was increasingly open with social work about particular paraphilia and obsessive compulsive behavior. We respect his privacy and will not go into detail. In the days prior to discharge, patient continued to present as decreased feeling psychotic. There is a chance that he is not voicing his thought in order to propagate discharge. However, he is not an immediate risk for suicide or harm to self or harm to others. Due to obligation to treat in less restrictive setting, discharge was decided upon by the treatment team. As stated above, his father was involved in discharge planning and is agreeable with plan. Both patient and his father were encouraged to this unit with any questions or concerns after discharge. The patient has been safe on all checks. He was decreased to a 30-minute observation and allowed staff pass. Again, he was calm with behavioral control and adherent to unit routine. We wished Lang the very best and we hope that he will allow us to be involved in his care. DEVANG VANCE, DANIEL [id number]/CPS #: [id number]
== END 2018-01-16 12:00 | disposition home or self-care (01) | DRG 755 ==
LOC: ED 10:53 → BSU 15:06
PROVIDERS: ADMIT Psychiatry & Neurology Psychiatry; ATTEND Psychiatry & Neurology Psychiatry
PROC: GZHZZZZ Group Psychotherapy (ICD-10-PCS; principal; 2018-01-03)
DX: F42.9 Obsessive-compulsive disorder, unspecified (principal); G43.909 Migraine, unspecified, not intractable, without status migrainosus; F12.10 Cannabis abuse, uncomplicated; F65.9 Paraphilia, unspecified; Z88.5 Allergy status to narcotic agent; Z56.0 Unemployment, unspecified; Z81.8 Family history of other mental and behavioral disorders; Z72.89 Other problems related to lifestyle
CPT/HCPCS: 36415; 70450; 80053; 80307; 80320; 80329; 81003; 81015; 84443; 85025; 87086; 90853; 96102; 99222; 99231; 99232; 99233; 99238; 99283; A9270-GY; G0480

== ENCOUNTER 2021-07-10 11:03 | Inpatient (IN) ==
[2021-07-10 12:19] LABS: Urine Benzodiazepine Screen None Detected (None Detect); Urine Cannabinoids Screen None Detected (None Detect); Urine Opiates Screen None Detected (None Detect)
[2021-07-10] MEDS ORDERED: Al Hydrox/Mg Hydrox/Simet LIQ 30 ML UDC PO PRN (13:29)
[2021-07-10 14:41] LABS: Rapid COVID-19 Molecular Undetected (Undetected)
[2021-07-10 15:14] LABS: ABS Eosinophils 0.1 10^3/ul (0-0.6); ABS Lymphocytes 1.3 10^3/ul (1.0-4.8); ABS Monocytes 0.4 10^3/ul (0-0.8); ABS Neutrophils 6.3 10^3/ul (1.5-7.7); Eosinophil % 1.5 %; Hematocrit 46 % (42-52); Mean Corpuscular HGB Conc 34 g/dL (31-36); Mean Corpuscular Hemoglobin 32 pg (27-31); Mean Corpuscular Volume 94 fL (80-94); Mean Platelet Volume 10.6 fL (7.4-10.4); Platelet Count 196 10^3/uL (150-450); Red Blood Count 4.96 10^6 /uL (4.18-5.48); Red Cell Distribution Width 13 % (10-15); White Blood Count 8.2 10^3/uL (3.5-10.8)
[2021-07-10 15:20] LABS: ALT 20 U/L (7-52); AST 19 U/L (13-39); Albumin 4.5 g/dL (3.2-5.2); Albumin/Globulin Ratio 1.8 (1-3); Alkaline Phosphatase 49 U/L (35-149); Anion Gap 6 mmol/L (2-11); Blood Urea Nitrogen 18 mg/dL (6-24); CO2 Carbon Dioxide 29 mmol/L (22-32); Calcium 10.1 mg/dL (8.6-10.3); Chloride 103 mmol/L (101-111); Globulin 2.5 g/dL (2-4); Glucose 94 mg/dL (70-100); Magnesium 1.9 mg/dL (1.9-2.7); Potassium 4.5 mmol/L (3.5-5.0); Sodium 138 mmol/L (135-145)
[2021-07-10 16:08] LABS: TSH Ultra Thyroid Stim Horm 2.26 mcIU/mL (0.34-5.60)
[2021-07-10 16:12] LABS: Alcohol, S < 13 mg/dL (<13); Salicylate < 2.50 mg/dL (<30)
[2021-07-10 16:14] LABS: Acetaminophen < 15 mcg/mL
[2021-07-14 08:34] VITALS: BP 145/75
== END 2021-07-14 15:05 | disposition home or self-care (01) | DRG 760 ==
LOC: ED 11:03 → BSU 13:29
PROVIDERS: ADMIT Psychiatry & Neurology Psychiatry; ATTEND Psychiatry & Neurology Psychiatry